=== PATIENT | female | born 1980 | race Caucasian/White ===

== ENCOUNTER 2024-09-14 21:27 | Emergency (ER) | payer OTHER ==
[~2024-09-14] VITALS: Ht 165.1 cm; Wt 77.1 kg
[2024-09-14] MEDS: CHLORDIAZEPOXIDE HCL 25 MG CAPSULE PO ONE (22:15)
[2024-09-14] MEDS: IV NORMAL SALINE 1000 ML BAG IV ONE (22:15)
[2024-09-14] MEDS: LORAZEPAM 2 MG/1 ML VIAL IV ONE (22:15)
[2024-09-14 22:27] LABS: PLATELET COUNT (AUTO) 224 K/uL (179-408); RED BLOOD CELL COUNT(AUTO) 4.33 MIL/uL (3.63-4.92); RED CELL DISTRIBUTION WIDTH 12.3 % (12.3-17.7); WHITE BLOOD COUNT (AUTO) 7.9 K/uL (3.8-11.8)
[2024-09-14 22:36] LABS: CREATININE 0.7 mg/dL (0.6-1.3); SODIUM SERUM 136 mmol/L (136-145); UREA NITROGEN, BLOOD 6 mg/dL (7-18)
[2024-09-14 22:40] LABS: ETHANOL 42.0 MG/DL (0-10)
[2024-09-14 22:41] LABS: ASPARTATE AMINOTRANSFERASE 238 U/L (15-37); TOTAL PROTEIN, SERUM 7.5 g/dL (6.4-8.2)
[2024-09-14 23:00] VITALS: BP 140/98
[2024-09-14] MEDS ORDERED: CHLORDIAZEPOXIDE HCL 25 MG CAPSULE ONE (23:14)
[2024-09-14] MEDS ORDERED: LORAZEPAM 2 MG/1 ML VIAL ONE ×2 (23:15→23:17)
[2024-09-15] MEDS: POTASSIUM CHLORIDE 20 MEQ TAB.PRT.SR PO ONE (01:10)
[2024-09-15] MEDS: IV NORMAL SALINE 1000 ML BAG IV ONE (01:10)
[2024-09-15 03:23] VITALS: BP 148/87; O2SAT 96
== END 2024-09-15 01:15 | disposition home or self-care (01) ==
LOC: ER 21:27
DX: G40.909 Epilepsy, unspecified, not intractable, without status epilepticus (principal); F10.239 Alcohol dependence with withdrawal, unspecified; R07.9 Chest pain, unspecified; F17.290 Nicotine dependence, other tobacco product, uncomplicated; Z86.69 Personal history of other diseases of the nervous system and sense organs; Y90.2 Blood alcohol level of 40-59 mg/100 ml
CPT/HCPCS: 80076; 80048; 85025; 36415; 93005; 99284; 96361; 96365; 96375; 80299; 80320; 99406; J1953 ×2; J2060; J7040; G0480